=== PATIENT | male | born 1980 | race Caucasian/White ===

== ENCOUNTER → 2020-11-03 | Outpatient (CLI) | payer OTHER ==
[~2020-11-03] MED LIST: BUDE10.2 IH; FLUT9.9S NS; LEVO5TAB29 PO; PANT40TA6 PO
== END ==
LOC: LAB 07:45
PROVIDERS: ATTEND Nurse Anesthetist, Certified Registered
DX: Z01.812 Encounter for preprocedural laboratory examination (principal); K21.9 Gastro-esophageal reflux disease without esophagitis; Z20.828 Contact with and (suspected) exposure to other viral communicable diseases
CPT/HCPCS: U0003

== ENCOUNTER → 2020-11-07 | Day surgery (SDC) | payer BC, OTHER ==
[~2020-11-07] MED LIST changes: +IPRATRPIUM/ALBUTEROL 0.5/2.5MG 3 ML NEBU. NEB PRN; +IV RINGERS SOLUTION,LACTATED 1,000 ML IV SCH; +MIDAZOLAM HCL PF 2 MG/2 ML VIAL. IV ONE; +ONDANSETRON PF 4 MG/2 ML VIAL. IV PRN; +PROPOFOL 10,000 MCG/ML (20ML) VIAL IV ONE
[2020-11-07 10:13] VITALS: BP 123/78
--- NOTE | 2020-11-09 14:08 | PATHOLOGY ---
[facility] Accession Number: [id number] . 01 Material submitted: . PART A: gastrointestinal site - GASTRIC BIOPSY PART B: gastrointestinal site - GASTRIC POLYP PART C: esophagus - DISTAL ESOPHAGUS . 01 Clinical history: . GERD DYSPHAGIA EGD . 02 Diagnosis: A. Gastric biopsy: - Chronic gastritis, mild. . B. Gastric biopsies, gastric polyp: - Fundic gland polyp, with focal mild chronic inflammation. . C. Esophageal biopsies, distal esophagus: - Reflux esophagitis. (JPM:nori; 11/09/2020) S 11/09/2020 0926 Local . 02 Comment: Sections of the gastric biopsy reveal gastric antral/body transition mucosa showing congestion and mild chronic inflammation. A properly controlled immunoperoxidase stain for Helicobacter is negative for Helicobacter organisms. . Sections of the gastric polyp biopsy reveal a fundic gland polyp showing focal mild chronic inflammation. There are no adenomatous changes or evidence of malignancy. . Sections of the distal esophageal biopsy reveal segments of tangentially oriented hyperplastic squamous esophageal mucosa showing acute and chronic inflammation. The findings are consistent with reflux esophagitis. There is no evidence of Carrera's change, dysplasia, or malignancy. (JPM:nori; 11/09/2020) . Special stain performed: Immunoperoxidase stain for Helicobacter on A1 . 02 Electronically signed: . Rich Swenson MD, Pathologist NPI- [id number] . 01 Gross description: . A. The specimen is received in formalin, labeled "Zak Clay, gastric biopsy". Received is a segment of pale horton soft tissue measuring 0.5 cm in maximum dimensions. The specimen is submitted entirely in cassette A1. . B. The specimen is received in formalin, labeled "Zak Danna, gastric polyp". Received are two segments of pale horton soft tissue ranging in size from 0.3 to 0.5 cm in maximum dimensions. The specimen is submitted entirely in cassette B1. . C. The specimen is received in formalin, labeled "Zak Clay, distal esophagus". Received are two segments of pale horton soft tissue ranging in size from 0.3 to 0.4 cm in maximum dimensions. The specimen is submitted entirely in cassette C1. (CAA; 11/08/2020) QAC/QAC 11/08/2020 1109 Local . 02 Pathologist provided ICD-10: K29.50, K31.7, K21.00 . 02 CPT . 814543, 821867, 199433, [id number] Specimen Comment: A courtesy copy of this report has been sent to [phone] Specimen Comment: Report sent to Performed at: [facility] [address] [facility] [address], [place] [id number] MD Romaine Ndiaye MD Phone: [phone] [facility]formed at: [facility] [address] [place], [place] [id number] MD Rich Swenson MD Phone: [phone]
== END | disposition home or self-care (01) ==
LOC: SURG 08:11
PROVIDERS: ATTEND Emergency Medicine
DX: R13.10 Dysphagia, unspecified (principal); K21.00 Gastro-esophageal reflux disease with esophagitis, without bleeding; K44.9 Diaphragmatic hernia without obstruction or gangrene; K29.50 Unspecified chronic gastritis without bleeding; K31.7 Polyp of stomach and duodenum; Z88.8 Allergy status to other drugs, medicaments and biological substances; Z79.899 Other long term (current) drug therapy
CPT/HCPCS: 43239; 88305; 88342; J2704; J7120

== ENCOUNTER → 2021-08-29 | Outpatient (CLI) | payer OTHER ==
[2020-11-07 10:13] VITALS: BP 123/78
[~2021-08-29] MED LIST changes: -IPRATRPIUM/ALBUTEROL 0.5/2.5MG 3 ML NEBU. NEB PRN; -IV RINGERS SOLUTION,LACTATED 1,000 ML IV SCH; -MIDAZOLAM HCL PF 2 MG/2 ML VIAL. IV ONE; -ONDANSETRON PF 4 MG/2 ML VIAL. IV PRN; -PROPOFOL 10,000 MCG/ML (20ML) VIAL IV ONE
--- NOTE | 2021-08-29 13:48 | RAD ---
Study: XR KNEE _4 VIEWS WITH PATELLA_LT Indication: Left knee pain. Comparison: None. Findings: No acute fracture. Alignment is within normal limits. Minimal medial femorotibial compartment joint s pace narrowing and trace degenerative irregularity of the articular surfaces. No large joint effusion . Unremarkable soft tissues. Impression: No acute osseous abnormality. Mild degenerative changes at the medial femorotibial compartment. Electronically signed by: DAVID AYERS MD (08/29/2021 1:46 PM) [id number]
== END ==
LOC: RAD 09:10
PROVIDERS: ATTEND Internal Medicine
DX: M17.12 Unilateral primary osteoarthritis, left knee (principal)
CPT/HCPCS: 73564